=== PATIENT | female | born 1950 | race Caucasian/White ===

== ENCOUNTER 2017-05-23 15:48 | Emergency (ER) | payer MEDICARE, SELFPAY ==
[2017-05-23 16:47] VITALS: BP 160/97; PULSE 114; RESP 20; TEMP 37.2; O2SAT 96; BMI 24.0
--- NOTE | 2017-05-23 16:50 | XR_ITS ---
XR chest 2V HISTORY: ITS.REASON: CHEST CONGESTION ORDERING PHYSICIAN: Irene Scott PATIENT AGE: 67 years COMPARISON: None available FINDINGS: The cardiomediastinal silhouette and pulmonary vascularity are within normal limits. The lungs are clear without infiltrates, suspicious nodules, or pleural effusions. Calcified nodes are present in the left hilum No acute bony abnormalities. IMPRESSION: Negative chest, no acute finding
--- NOTE | 2017-05-23 17:12 | HMH.EDUTC ---
[facility] [place] Disposition Clinical Impression: Upper respiratory infection Qualifiers: URI type: unspecified URI Qualified Code(s): J06.9 - Acute upper respiratory infection, unspecified Disposition: Home, Self-Care Condition on Discharge: Good Instructions: Cough, DI for Headache, Sore Throat Additional Instructions: * Monitor Temp. Tylenol and/or Ibuprofen as needed. ER if fever is no less than 101 despite alternating Tylenol and Ibuprofen * Encourage fluids, water, Gatorade, powerade, pedialyte if /toddler/or child * Warm salt water gargles for throat irritation *Warm fluids *Sore throat lozenges *Sleep elevated *humidifier or vaporizer Lots of rest Increase fluids, water, Gatorade, powerade Over the counter Motrin or Tylenol as needed for pain or fever Return if needed Follow up with family doctor Prescriptions: Albuterol Sulfate [Proair Hfa 90mcg/puff Inh] 2 puffs IH Q4HP PRN #1 inh PRN Reason: Shortness Of Breath Or Wheezing Azithromycin [Z-Gibson 250mg Tab] 250 mg PO UD DOSE PK #6 tab Dextromethorphan Polistirex [Delsym] 10 ml PO Q12 #200 verena.er.12h predniSONE [Prednisone 20mg Tab] 20 mg PO BID #10 tab Time of Disposition: 17:25 Medical Decision Making - Medical Records Medical records reviewed: Yes: I reviewed the patient's medical records. Vital Signs: 05/23/17 16:47 Temperature 98.9 F Temperature Source Temporal Artery Scan Pulse Rate [Brachial] 114 H Respiratory Rate 20 Blood Pressure [Left Arm] 160/97 Blood Pressure Mean [Left Arm] 118 Blood Pressure Source [Left Arm] Automatic Cuff Blood Pressure Position [Left Arm] Sitting 02 Sat by Pulse Oximetry 96 Oxygen Delivery Method Room Air Orders (Tests/Meds): ORDERS Category Date Time Status Chest XR 2 view (NOT portable) [XR chest 2V] Stat Exams 05/23/17 16:50 Taken - Marlon Inquiry Pt receiving controlled substance: No Marlon was queried for this patient: No [facility] [place] HPI - General Stated complaint: congestion Mode of Arrival: Ambulatory Source of Information: Patient Limitations: No Limitations Description of Symptoms (Recalled from Triage Doc. by RN): COUGH AND CHEST CONGESTION SINCE SATURDAY HEENT Symptoms (Recalled from RN notes): No Resp Symptoms (Recalled from RN notes): Yes Skin Symptoms (Recalled from RN notes): No MS Symptoms (Recalled from RN notes): No Functional Status (Recalled from RN notes): NA - History of Present Illness Provider Complaint: Patient state that she has had cough and chest congestion since Saturday State that she is coughing up yellowish colored phlem States that her cough has continued to get worse and she is not resting well State that now her throat feels irritated and sore - Related Data Home Medications Medication Instructions Recorded Confirmed Metoprolol Succinate [Toprol XL 50 mg PO DAILY 05/23/17 05/23/17 50mg Tablet] Primidone [Mysoline 250mg tablet] 250 mg PO TID 05/23/17 05/23/17 Previous Rx's Medication Instructions Recorded Albuterol Sulfate [Proair Hfa 2 puffs IH Q4HP PRN #1 inh 05/23/17 90mcg/puff Inh] Azithromycin [Z-Gibson 250mg Tab] 250 mg PO UD DOSE PK #6 tab 05/23/17 Dextromethorphan Polistirex 10 ml PO Q12 #200 verena.er.12h 05/23/17 [Delsym] predniSONE [Prednisone 20mg 20 mg PO BID #10 tab 05/23/17 Tab] Allergies Allergy/AdvReac Type Severity Reaction Status Date / Time No Known Allergies Allergy Verified 05/23/17 16:50 - Worker's Comp Is this a Worker's Comp case?: No H History I have reviewed the patient's past medical history: Yes Medical History: Denies:: Cancer, Diabetes Mellitus Type 1, Diabetes Mellitus Type 2, MRSA Amputation: No - *Social History Alcohol Intake: never - Psychiatric History Expresses thoughts of harming self/others: None Suicide Plan Description: No Plan ROS Obtained: Yes All systems reviewed & no additional complaints - Constitutional Constitutional: Reports chills, Reports fever(s) - ENT
--- NOTE | 2017-05-23 17:19 | ED_ITS ---
[facility] [place] Clinical Impression: Upper respiratory infection Qualifiers: URI type: unspecified URI Qualified Code(s): J06.9 - Acute upper respiratory infection, unspecified Disposition: Home, Self-Care Condition on Discharge: Good Instructions: Cough, DI for Headache, Sore Throat Additional Instructions: * Monitor Temp. Tylenol and/or Ibuprofen as needed. ER if fever is no less than 101 despite alternating Tylenol and Ibuprofen * Encourage fluids, water, Gatorade, powerade, pedialyte if /toddler/or child * Warm salt water gargles for throat irritation *Warm fluids *Sore throat lozenges *Sleep elevated *humidifier or vaporizer Lots of rest Increase fluids, water, Gatorade, powerade Over the counter Motrin or Tylenol as needed for pain or fever Return if needed Follow up with family doctor Prescriptions: Albuterol Sulfate [Proair Hfa 90mcg/puff Inh] 2 puffs IH Q4HP PRN #1 inh PRN Reason: Shortness Of Breath Or Wheezing Azithromycin [Z-Gibson 250mg Tab] 250 mg PO UD DOSE PK #6 tab Dextromethorphan Polistirex [Delsym] 10 ml PO Q12 #200 verena.er.12h predniSONE [Prednisone 20mg Tab] 20 mg PO BID #10 tab Time of Disposition: 17:25 Medical Decision Making - Medical Records Medical records reviewed: Yes: I reviewed the patient's medical records. Vital Signs: 05/23/17 16:47 Temperature 98.9 F Temperature Source Temporal Artery Scan Pulse Rate [Brachial] 114 H Respiratory Rate 20 Blood Pressure [Left Arm] 160/97 Blood Pressure Mean [Left Arm] 118 Blood Pressure Source [Left Arm] Automatic Cuff Blood Pressure Position [Left Arm] Sitting 02 Sat by Pulse Oximetry 96 Oxygen Delivery Method Room Air Orders (Tests/Meds): ORDERS Category Date Time Status Chest XR 2 view (NOT portable) [XR chest 2V] Stat Exams 05/23/17 16:50 Taken - Marlon Inquiry Pt receiving controlled substance: No Marlon was queried for this patient: No [facility] [place] - General Stated complaint: congestion Mode of Arrival: Ambulatory Source of Information: Patient Limitations: No Limitations Description of Symptoms (Recalled from Triage Doc. by RN): COUGH AND CHEST CONGESTION SINCE SATURDAY HEENT Symptoms (Recalled from RN notes): No Resp Symptoms (Recalled from RN notes): Yes Skin Symptoms (Recalled from RN notes): No MS Symptoms (Recalled from RN notes): No Functional Status (Recalled from RN notes): NA - History of Present Illness Provider Complaint: Patient state that she has had cough and chest congestion since Saturday State that she is coughing up yellowish colored phlem States that her cough has continued to get worse and she is not resting well State that now her throat feels irritated and sore - Related Data Home Medications Medication Instructions Recorded Confirmed Metoprolol Succinate [Toprol XL 50 mg PO DAILY 05/23/17 05/23/17 50mg Tablet] Primidone [Mysoline 250mg tablet] 250 mg PO TID 05/23/17 05/23/17 Previous Rx's Medication Instructions Recorded Albuterol Sulfate [Proair Hfa 2 puffs IH Q4HP PRN #1 inh 05/23/17 90mcg/puff Inh] Azithromycin [Z-Gibson 250mg Tab] 250 mg PO UD DOSE PK #6 tab 05/23/17 Dextromethorphan Polistirex 10 ml PO Q12 #200 verena.er.12h 05/23/17 [Delsym] predniSONE [Prednisone 20mg 20 mg PO BID #10 tab 05/23/17 Tab] All
== END 2017-05-23 17:51 | disposition home or self-care (01) ==
PROVIDERS: Emergency Provider Nurse Practitioner; Family Provider Internal Medicine
DX: J06.9 Acute upper respiratory infection, unspecified (principal)
CPT/HCPCS: 71046; 96372; 99202; 99282

== ENCOUNTER → 2017-12-04 14:19 | Outpatient (CLI) | payer MEDICARE, SELFPAY ==
--- NOTE | 2017-12-04 14:29 | XR_ITS ---
XR wrist RT min 3V Ordering Physician: Casey Jorge Patient Age: 67 years: Female HISTORY: ITS.REASON: RT WRIST PAIN,S/P FALL 1 MONTH AGO TECHNIQUE: 3 views right wrist COMPARISON :None FINDINGS . Arthritic changes are seen at the first carpal metacarpal joint. Narrowing sclerosis and mild hypertrophic changes at medial aspect of the joint noted. Trace arthritic changes are also suggested at articulation of the trapezium and distal navicular. There appear to be some subchondral cystic changes at the distal margin navicular towards this articulation. On the oblique view of the navicular there is question barely appreciable, subtle line through transverse the waist of the navicular this may be due to contour and overlying projections is not seen on the other projections, not seen on the AP and lateral views. There is no cortical step-off either However with given symptoms if there should be pain at the anatomical snuffbox then I would recommend follow-up navicular views. If significant pain at the snuffbox and a follow-up MR may need to be considered. On today's study the proximal pole of the navicular appears normal. But there are some subchondral cystic changes at the ulnar margin of the triquetrum Distal radius and ulna appear intact... Diffuse demineralization IMPRESSION------- 1. Developing arthritic changes first carpal-metacarpal joint . Suspect minor scant arthritic changes at trapezium-distal navicular correlation is well 2. On the oblique view only, there is a very subtle questionable line transversing the waist of the navicular. Not seen on other views. No cortical step-off. If there should be pain at the anatomical snuffbox then I would recommend follow-up navicular views to further evaluate
== END ==
PROVIDERS: PCP Internal Medicine; Visit Provider Internal Medicine
DX: M25.531 Pain in right wrist (principal)
CPT/HCPCS: 73110

== ENCOUNTER → 2017-12-09 15:24 | Outpatient (CLI) | payer MEDICARE, SELFPAY ==
--- NOTE | 2017-12-09 15:38 | XR_ITS ---
XR wrist RT w scaphoid HISTORY ITS.REASON: FX NAVICULAR BONE ORDERING PHYSICIAN: Casey Jorge PATIENT AGE: 67 years Comparison: 12/04/2017 FINDINGS: Views of the right wrist including scaphoid views were obtained. There remains a subtle transverse lucency at the waist of the navicular on the oblique view of the wrist. This however is not demonstrated on the scaphoid view. There is however a faint cortical lucency involving the waist of the scaphoid laterally. There are mild osteoarthritic changes at the scaphotrapezium joint and the first metacarpal carpal joint. IMPRESSION: 1. There remains a faint lucency at the waist of the navicular on the oblique view. This however is not demonstrated on the scaphoid view and AP view and may be due to an artifact. If pain persists, consider CT for further evaluation. 2. Osteoarthritic change
== END ==
PROVIDERS: PCP Internal Medicine; Visit Provider Internal Medicine
DX: S62.001A Unspecified fracture of navicular [scaphoid] bone of right wrist, initial encounter for closed fracture (principal)
CPT/HCPCS: 73110

== ENCOUNTER → 2018-01-23 10:06 | Outpatient (CLI) | payer MEDICARE, SELFPAY ==
[2018-01-23 10:44] LABS: Blood Urea Nitrogen 11 mg/dL (7-18); Creatinine,Serum 0.92 mg/dL (0.55-1.02); Estimated Glomerular Filt Rate 61 ml/min (>60); GFR (African American) 74 ML/MIN (>60)
--- NOTE | 2018-01-23 12:27 | CT_ITS ---
CT chest w con HISTORY: ITS.REASON: MELANOMA ORDERING PHYSICIAN: Referral Provider PATIENT AGE: 67 years COMPARISON: None TECHNIQUE: Axial images obtained following the administration of 75 mL of Isovue 370 . Sagittal, and coronal reformatted images are also generated and reviewed. All CT scans at the facility use one or more dose reduction, viz: automated exposure control, ma/kV adjustment per patient size (including targeted exams where dose is matched to indication, i.e. head), or iterative reconstruction technique. FINDINGS: No mediastinal or hilar mass or adenopathy. Normal heart size. No evidence of pericardial effusion, aortic aneurysm, or central pulmonary embolus. No suspicious pulmonary nodules effusions or infiltrates. Calcified nodes are present in the left hilum. There is kinking of the proximal aspect of the right subclavian artery with tortuosity with what appears to represent a moderate stenosis and poststenotic dilatation 1.2 cm distal to the origin of the right subclavian artery. The stenosis appears greater than 50%. No bony destructive process. IMPRESSION: 1. No evidence of pulmonary metastasis. 2. Old granulomatous disease. 3. Moderate stenosis of the proximal aspect of the right subclavian artery
--- NOTE | 2018-01-23 12:27 | CT_ITS ---
CT abdomen pelvis w con CLINICAL INDICATION: ITS.REASON: MELANOMA ORDERING PHYSICIAN: Referral Provider, PATIENT AGE: 67 years COMPARISON: None TECHNIQUE: Axial images obtained with sagittal and coronal reformats. All CT scans at the facility use one or more dose reduction, viz: automated exposure control, ma/kV adjustment per patient size (including targeted exams where dose is matched to indication, i.e. head), or iterative reconstruction technique. PROCEDURE: Oral Contrast: None IV Contrast: 75 mL's of Isovue-370 performed in conjunction with the chest CT. FINDINGS: There is a 6 mm isodensity in the right hepatic lobe posteriorly. This is nonspecific. No previous exams are available for review. Patchy decreased attenuation is present within the liver consistent with fatty liver. Prior cholecystectomy. The spleen, adrenal glands, and pancreas are unremarkable. No renal or ureteral calculi, hydronephrosis, or renal mass evident. There are few scattered small lymph nodes in the mesentery's. No adenopathy. Unremarkable appendix. There is a small umbilical hernia containing fat. No pelvic mass or abnormal fluid collection or focal inflammatory changes pelvis. There is sclerosis of the right symphysis pubis compared to the left side of questionable clinical significance. Sclerosis of the right SI joint also noted. No lytic bony lesions evident. There are mild degenerative changes in the lumbar spine. IMPRESSION: 1. Fatty liver with indeterminate 6 mm isodensity in the right hepatic lobe. 6 month follow-up suggested to confirm stability in this patient with history of melanoma. 2. Sclerosis of the symphysis pubis on the right and sclerosis of the right SI joint.. These findings were present on 02/27/2016 and may be degenerative in nature. No bony destructive process evident
== END ==
PROVIDERS: Family Provider Internal Medicine; PCP Internal Medicine; Visit Provider Ophthalmology
DX: Z03.89 Encounter for observation for other suspected diseases and conditions ruled out (principal); C69.30 Malignant neoplasm of unspecified choroid
CPT/HCPCS: 36415; 71260; 74177; 82565; 84520; Q9967

== ENCOUNTER → 2018-10-10 13:21 | Outpatient (CLI) | payer MEDICARE, SELFPAY ==
--- NOTE | 2018-10-10 13:37 | CT_ITS ---
CT abdomen w con CLINICAL INDICATION: ITS.REASON: MELANOMA METASTASIS ORDERING PHYSICIAN: Micheline Nevarez MD PATIENT AGE: 68 years COMPARISON: None TECHNIQUE: Axial images obtained with sagittal and coronal reformats. All CT scans at the facility use one or more dose reduction, viz: automated exposure control, ma/kV adjustment per patient size (including targeted exams where dose is matched to indication, i.e. head), or iterative reconstruction technique. PROCEDURE: Oral Contrast: None IV Contrast: 75 mL's Optiray 350 performed in conjunction with the chest CT. FINDINGS: Heterogeneous areas of decreased attenuation are present within the liver consistent with fatty infiltration. There is an 8 mm hypoattenuating area in the right hepatic lobe posteriorly. This does appear slightly more prominent than when compared to the previous exam. No new lesions are evident. Cholecystectomy change. The spleen, adrenal glands, and pancreas have an unremarkable appearance. No renal or ureteral calculi. No renal mass. Small lymph node is present posterior to the portal vein unchanged. No abdominal mass or abnormal fluid collection evident. The pelvis is not imaged on this exam. There is a small umbilical hernia which contains fat. No retroperitoneal adenopathy. There are mild degenerative changes in the spine. IMPRESSION: 1. There is an 8 mm isodense lesion in the right hepatic lobe posteriorly. This does appear slightly more prominent compared to the previous study. Metastatic lesion is not excluded. There are no new lesions evident. No other changes are apparent. Continued follow-up recommended
--- NOTE | 2018-10-10 13:37 | CT_ITS ---
CT chest w con HISTORY: ITS.REASON: MELANOMA METASTASIS ORDERING PHYSICIAN: Micheline Nevarez MD PATIENT AGE: 68 years COMPARISON: 01/23/2018 [birth year]/1980 TECHNIQUE: Axial images obtained following the administration of 75 mL of Optiray 350 . Sagittal, and coronal reformatted images are also generated and reviewed. All CT scans at the facility use one or more dose reduction, viz: automated exposure control, ma/kV adjustment per patient size (including targeted exams where dose is matched to indication, i.e. head), or iterative reconstruction technique. FINDINGS: No mediastinal or hilar mass or adenopathy. Normal heart size. No evidence of aortic aneurysm or central pulmonary embolus. Prominent spurring is present along the lower thoracic spine on the right colon and some atelectatic changes. No suspicious pulmonary nodules are evident. There are mild atelectatic changes in the left lung base. Calcified nodes present in the left hilum.. No acute bony anomalies. Previously there was suspected stenosis of the subclavian artery on the right. This area is obscured by artifact on today's images. IMPRESSION: Stable CT appearance of the chest. No convincing evidence of metastatic disease Slight increase in atelectasis or fibrosis in the right lower lobe medially adjacent prominent spurs of the T-spine
== END ==
PROVIDERS: PCP Internal Medicine; Visit Provider Ophthalmology
DX: C69.31 Malignant neoplasm of right choroid (principal)
CPT/HCPCS: 71260; 74160

== ENCOUNTER → 2020-01-22 14:37 | Outpatient (CLI) | payer MEDICARE, SELFPAY ==
--- NOTE | 2020-01-22 14:46 | XR_ITS ---
PROCEDURE: XR FINGER RT MIN 2V CLINICAL INDICATION: RT THUMB PAIN COMPARISON: No exams were available for comparison FINDINGS: No fracture or dislocation. No lytic or blastic change. There is normal mineralization. There are mild osteoarthritic changes at the 1st metacarpal-carpal joint, 1st interphalangeal joint, and 1st metacarpophalangeal joint. No fracture or dislocation. Osteoarthritis also noted at the 2nd metacarpophalangeal junction with a small periarticular erosion possibly due to small geode Other findings:None. IMPRESSION: Mild osteoarthritis of the right thumb Dictated by: Raf Segura MD 01/22/2020 17:40 Raf Segura MD in [place] 01/22/2020 17:40
== END ==
PROVIDERS: PCP Internal Medicine; Visit Provider Internal Medicine
DX: M79.644 Pain in right finger(s) (principal)
CPT/HCPCS: 73140

== ENCOUNTER → 2021-02-22 13:55 | Outpatient (CLI) | payer MEDICARE, SELFPAY ==
[2021-02-22 14:36] LABS: Basophils # 0.1 K/mm3 (0-0.2); Basophils % 1.9 % (0.1-2.0); Eosinophils # 0.2 K/mm3 (0.0-0.4); Eosinophils % 3.8 % (0.1-12.0); Hematocrit 43.3 % (37.0-47.0); Hemoglobin 14.2 g/dL (12.2-16.2); Lymphocytes # 1.5 K/mm3 (0.7-4.5); Lymphocytes % 29.8 % (10-50); Mean Corpuscular HGB Conc 32.8 g/dL (31.8-35.4); Mean Corpuscular Hemoglobin 29.6 pg (27.0-31.2); Mean Corpuscular Volume 90.4 fl (81-99); Mean Platelet Volume 8.9 fl (7.4-10.4); Monocytes # 0.3 K/mm3 (0.1-1.0); Monocytes % 6.9 % (1.7-9.3); Neutrophils # 2.8 K/mm3 (1.8-7.8); Neutrophils % 57.5 % (37.0-80.0); Platelet Count 219 K/mm3 (142-424); Red Blood Count 4.79 M/mm3 (4.20-5.40); Red Cell Distribution Width 13.8 % (11.5-17.5); White Blood Count 4.9 K/mm3 (4.8-10.8)
[2021-02-22 15:18] LABS: Alanine Aminotransferase 41 U/L (12-78); Albumin Level 4.2 g/dl (3.5-5.0); Albumin/Globulin Ratio 1.4 (1.1-1.8); Alkaline Phosphatase 103 U/L (38-126); Anion Gap 13.3 mEq/L (5-15); Aspartate Amino Transferase 36 U/L (14-36); Bilirubin,Total 0.3 mg/dl (0.2-1.3); Blood Urea Nitrogen 12 mg/dl (7-17); Calcium 9.2 mg/dl (8.4-10.2); Carbon Dioxide 27 mmol/L (22.0-30.0); Chloride 104 mmol/L (98-107); Estimated Glomerular Filt Rate 99 ml/min (>60); GFR (African American) 119 ML/MIN (>60); Globulin 3.1 g/dL (1.3-3.2); Glucose 85 mg/dl (74-100); Potassium 4.3 mmoL/L (3.5-5.1); Sodium 140 mmol/L (136-145); Total Protein,Serum 7.3 g/dl (6.3-8.2)
[2021-02-22 15:49] LABS: Thyroid Stimulating Hormone 6.02 uIU/mL (0.465-4.68)
== END ==
PROVIDERS: Visit Provider Internal Medicine
DX: I10 Essential (primary) hypertension (principal); E03.9 Hypothyroidism, unspecified; G40.909 Epilepsy, unspecified, not intractable, without status epilepticus; Z85.840 Personal history of malignant neoplasm of eye
CPT/HCPCS: 80053; 84436; 84443; 85025

== ENCOUNTER → 2021-03-17 15:10 | Outpatient (CLI) | payer MEDICARE, SELFPAY ==
[2021-03-17 18:15] LABS: Anion Gap 13.6 mEq/L (5-15); Blood Urea Nitrogen 11 mg/dl (7-17); Calcium 9.3 mg/dl (8.4-10.2); Carbon Dioxide 27 mmol/L (22.0-30.0); Chloride 104 mmol/L (98-107); Estimated Glomerular Filt Rate 99 ml/min (>60); GFR (African American) 119 ML/MIN (>60); Glucose 80 mg/dl (74-100); Potassium 4.6 mmoL/L (3.5-5.1); Sodium 140 mmol/L (136-145)
== END ==
PROVIDERS: Visit Provider Internal Medicine
DX: R60.9 Edema, unspecified (principal)
CPT/HCPCS: 80048

== ENCOUNTER → 2022-07-25 11:37 | Outpatient (CLI) | payer MEDICARE, SELFPAY ==
--- NOTE | 2022-07-25 11:42 | CT_ITS ---
FINAL REPORT TECHNIQUE: Axial images through the abdomen and pelvis were performed without contrast. This study was performed with techniques to keep radiation doses as low as reasonably achievable, (ALARA). Individualized dose reduction techniques using automated exposure control or adjustment of mA and/or kV according to the patient's size were employed. CLINICAL HISTORY: Incarcerated hernia COMPARISON: 01/23/2018 FINDINGS: ABDOMEN: There is mild scarring in the right lung base. The heart size is normal. There is fatty infiltration of the liver. The patient is status post cholecystectomy. The spleen is normal. No adrenal mass is identified. The aorta is normal in caliber. There is no significant free fluid or adenopathy. There is no nephrolithiasis. There is no hydronephrosis. There is a small supraumbilical hernia containing fat only. Finding is new since the prior. There is an umbilical hernia containing fat, larger than previous. Hernia sac measures 42 mm in transverse dimension. PELVIS: The appendix is normal. The urinary bladder is unremarkable. There is no significant free fluid or adenopathy. There is sclerosis adjacent to the right SI joint. IMPRESSION: New, supraumbilical hernia. Umbilical hernia containing fat, larger than previous. Reviewed, Interpreted and Dictated by William West III, MD Transcribed by Jasmina Hinton Authenticated and [facility]
--- NOTE | 2022-07-25 12:38 | ECG_ITS ---
APPROVED REPORT Exam: Resting ECG HR:73 bpm ECG Measurements Heart Rate 73 AXES DE 157 P 49 QRSd 92 QRS 81 QT 373 T 42 QTc 399 Conclusion SINUS RHYTHM LOW QRS VOLTAGE IN PRECORDIAL LEADS Isolated Q in III Late R wave progression - old finding BORDERLINE ECG UNCONFIRMED REPORT Electronically signed by : Eliezer Carvajal MD 07/25/2022 20:25:11
[2022-07-25 12:59] LABS: Basophils # 0.1 K/mm3 (0-0.2); Basophils % 2.4 % (0.1-2.0); Eosinophils # 0.2 K/mm3 (0.0-0.4); Eosinophils % 3.8 % (0.1-12.0); Hemoglobin 14.9 g/dL (12.2-16.2); Lymphocytes # 1.6 K/mm3 (0.7-4.5); Lymphocytes % 27.8 % (10-50); Mean Corpuscular HGB Conc 31.7 g/dL (31.8-35.4); Mean Corpuscular Hemoglobin 28.7 pg (27.0-31.2); Mean Corpuscular Volume 90.5 fl (81-99); Mean Platelet Volume 8.3 fl (7.4-10.4); Monocytes # 0.4 K/mm3 (0.1-1.0); Monocytes % 6.9 % (1.7-9.3); Neutrophils # 3.3 K/mm3 (1.8-7.8); Neutrophils % 59.1 % (37.0-80.0); Platelet Count 231 K/mm3 (142-424); Red Cell Distribution Width 13.7 % (11.5-17.5); White Blood Count 5.6 K/mm3 (4.8-10.8)
[2022-07-25 13:27] LABS: Anion Gap 12.5 mEq/L (5-15); Blood Urea Nitrogen 14 mg/dl (7-17); Calcium 9.4 mg/dl (8.4-10.2); Carbon Dioxide 29 mmol/L (22.0-30.0); Chloride 103 mmol/L (98-107); Estimated Glomerular Filt Rate 82 ml/min (>60); GFR (African American) 100 ML/MIN (>60); Glucose 88 mg/dl (74-100); Potassium 4.5 mmoL/L (3.5-5.1); Sodium 140 mmol/L (136-145)
== END ==
PROVIDERS: PCP Internal Medicine; Visit Provider Surgery
DX: K46.0 Unspecified abdominal hernia with obstruction, without gangrene (principal); K42.0 Umbilical hernia with obstruction, without gangrene; Z01.818 Encounter for other preprocedural examination
CPT/HCPCS: 36415; 74176; 80048; 85025; 93005

== ENCOUNTER 2022-07-26 15:56 | Observation (INO) | payer MEDICARE, SELFPAY ==
[2022-07-26] VITALS (24 sets, daily range): BP systolic 102–157; BP diastolic 51–98; PULSE 68–92; RESP 16–19; TEMP 36.4–43; O2SAT 90–98; BMI 42.4
--- NOTE | 2022-07-26 13:27 | EXP.ANES.CKL ---
[facility] Disclaimer: The information contained in this section may have been updated after the patient was seen, as this information can be updated by other users. Medical History (Updated 07/26/22 @ 10:40 by Daniella Kaur RN) Hypertension Hypothyroid Seizure disorder Surgical History History of eye surgery History of laparoscopic cholecystectomy Family History (Updated 07/26/22 @ 10:37 by Daniella Kaur RN) Other Family history of diabetes mellitus type II Family history of hypothyroidism Social History (Updated 07/26/22 @ 10:41 by Daniella Kaur RN) Smoking Status: Never smoker alcohol intake: current substance use type: denies use current occupational status: retired Travel in the last 8 weeks: None household members: none housing: house lives independently: Yes marital status: education level: college special shayy needs: No agree to transfusion: No do you feel safe at home: Yes victim of physical abuse: No victim of emotional abuse: No victim of sexual abuse: No would you like helpful sources: No [facility] Anesthesia Checklist Patient Identification Patient Identification: Arm Band Structural Data Admitted From: Home Planned Operative Procedure/s: Open Umbilical Hernia Repair Consent for Planned Operative Procedure(s) Verified: Yes Verified Documents: Surgical Consent and History and Physical NPO Status Verified Time NPO: 00:00 Additional verifications Anesthesia Reactions: No Hx Blood Transfusions: No Blood Transfusion Reaction: No Airway Assessment C-Spine Mobility Assessed: Yes TMJ Mobility Assessed: Yes Dentition: Good Dentition Neurological Assessment Level of Consciousness: Awake and Alert Anesthesia Plan Anesthesia Risk discussed: Yes Anesthesia Plan: Verified ASA Class: III Anesthesia Type: General
--- NOTE | 2022-07-26 14:05 | EXP.OP.NOTE ---
Date of procedure: 07/26/22 Pre-op Diagnosis:: Incarcerated umbilical hernia Supraumbilical hernia Post-op Diagnosis:: Incarcerated umbilical hernia (incarcerated omentum) Supraumbilical hernia Procedure performed:: Open primary umbilical hernia and supraumbilical hernia repair (no mesh) Surgeon:: Ignacio Mitchell MD ORDER PACKER OR PACKAGER:: Thaddeus Sarah Anesthesia: GETA Estimated blood loss (mL): 15 Clinical Note:: The use of mesh contraindicated by recent overlying skin excoriation/inflammation. The patient understood the increased risk for recurrent hernia. Operative findings:: Incarcerated omentum Small bowel at margin of hernia Operative note:: After informed consent was obtained the patient was taken to the operating room and placed in the supine position. General anesthesia was induced and her abdomen was prepped and draped in a sterile fashion. After infiltration local anesthetic a longitudinal incision was made above the umbilicus. The deep subcutaneous tissue was dissected to the level of fascia. A small fascial defect above the umbilicus was closed with 0 Ethibond. Attention was then turned to the incarcerated umbilical hernia. The tissue around the incarcerated omentum was carefully dissected with a combination of blunt dissection and electrocautery. The overlying umbilical stalk was transected to facilitate dissection. The incarcerated omentum with surrounding hernia sac was carefully elevated. The hernia sac was transected at the margin of the fascia. The incarcerated omentum was carefully elevated. The omentum cannot be returned to the abdominal cavity; therefore, the decision was made to proceed with transection. Transection of the omentum with electrocautery was completed. No active bleeding was noted. Multiple loops of small bowel were in extremely close proximity to the hernia repair; however, no obvious injury was noted. The 2 cm defect at the umbilicus was primarily closed with interrupted 0 Ethibond. As stated above, foreign body material/mesh was not utilized secondary to recent skin excoriation/inflammation. The wound was carefully irrigated. The umbilical stump was reapproximated with interrupted Vicryl suture. Skin was then closed with 4-0 Monocryl in an interrupted mattress fashion to facilitate hemostasis. Dressings were applied and the patient was transferred to recovery in stable condition. Condition: stable Disposition: PACU Specimens:: None Complications:: No immediate
--- NOTE | 2022-07-26 14:17 | P.PNANES_ITS ---
[facility] Anesthesia Record Part I Anesthesia Record I Intake, IV Amount: 1,100 Estimated blood loss (mL): 10 Urine output (mL): 0 Blood Pressure: 149/97 SaO2: 91 Pulse Rate: 89 Respiratory Rate: 16 Temperature: 99 F Patient is:: Drowsy Stable to PACU at:: 14:15
--- NOTE | 2022-07-26 15:48 | EXP.GEN.HP ---
HPI HPI HPI: This is a 72-year-old female seen in consultation from Dr. Jorge for evaluation regarding an incarcerated umbilical hernia.? She has a long history of umbilical hernia with intermittent pain.? She states over the past 3 days she has noticed fairly significant periumbilical pain/tenderness.? Reportedly, her hernia always sticks out .? Seemingly, she does not make efforts to reduce her hernia secondary to associated pain/tenderness.? No nausea or vomiting.? She continues to pass flatus.? No distention. CT scan shows incarcerated umbilical defect (likely preperitoneal fat) without evidence of small bowel incarceration.? A small supraumbilical hernia is also noted.? She is being scheduled for open repair tomorrow.? Secondary to the inflammatory changes noted in the surrounding/overlying skin, placement of mesh is somewhat contraindicated.? The patient understands the increased risk of recurrence without mesh placement. [facility] Disclaimer: The information contained in this section may have been updated after the patient was seen, as this information can be updated by other users. Medical History (Updated 07/26/22 @ 10:40 by Daniella Kaur RN) Hypertension Hypothyroid Seizure disorder Surgical History History of eye surgery History of laparoscopic cholecystectomy Family History (Updated 07/26/22 @ 10:37 by Daniella Kaur RN) Family history of hypothyroidism Family history of diabetes mellitus type II Social History (Updated 07/26/22 @ 10:41 by Daniella Kaur RN) Smoking Status: Never smoker alcohol intake: current substance use type: denies use current occupational status: retired Travel in the last 8 weeks: None household members: none housing: house lives independently: Yes marital status: education level: college special shayy needs: No agree to transfusion: No do you feel safe at home: Yes victim of physical abuse: No victim of emotional abuse: No victim of sexual abuse: No would you like helpful sources: No Review of Systems Review of Systems Review of systems:: pertinent systems reviewed and negative unless documented below Constitutional Constitutional: Reports system reviewed and no additional complaints, except as documented Eyes Eyes: Reports system reviewed and no additional complaints, except as documented ENT Ears, Nose, Mouth, and Throat: Reports system reviewed and no additional complaints, except as documented *Cardiovascular Cardiovascular: Reports system reviewed and no additional complaints, except as documented *Respiratory Respiratory: Reports system reviewed and no additional complaints, except as documented *Gastrointestinal Gastrointestinal: Reports as per HPI *Genitourinary Genitourinary: Reports system reviewed and no additional complaints, except as documented *Musculoskeletal Musculoskeletal: Reports system reviewed and no additional complaints, except as documented Integumentary/Breasts Skin/Breast: Reports system reviewed and no additional complaints, except as documented *Neurologic Neurologic: Reports system reviewed and no additional complaints, except as documented Psychiatric Psychiatric: Reports system reviewed and no additional complaints, except as documented Endocrine Endocrine: Reports system reviewed and no additional complaints, except as documented Hematologic/Lymphatic Hematologic/Lymphatic: Reports system reviewed and no additional complaints, except as documented Allergic/Immunologic Allergic/Immunologic: Reports system reviewed and no additional complaints, except as documented Meds Home Medications and Allergies Home Medications Medication Instructions Recorded Confirmed Type metoprolol succinate 50 mg 50 mg PO DAILY Hypertension 05/23/17 07/26/22 History tablet,extended release 24 hr (Toprol XL) primidone 250 mg tablet 250 mg PO TID EPILEPSY 05/23/17
--- NOTE | 2022-07-26 15:50 | SUR.PHASEII ---
1500 - Spoke to patient's preacher at bedside. Pt and preacher both confirm this pt does not have any available family/friends to care for her tonight. Pt had been arranged transportation by the [facility] [place] here and was under the impression she would be able to ride it back home by herself. Informed pt that she had to have someone sign for her discharge and ride with her home, she states she does not have someone available for this as well. Pt's preacher confirms he did stay here during surgery but would not be able to stay w/ pt either and was not comfortable signing DC paperwork d/t this. Pt's preacher had reached out to multiple people to see if there was anyone able to stay w/ patient but has been unsuccessful so far. 1530 - Spoke to Dr. Mitchell @ this time about situation, made aware that pt does not have support person at home. agreeable to admit for obs over night. 1540 - House contacted about admission 1555 - Per house pt will be going to room 205. Pt updated on POC.
[2022-07-26 16:12] LABS: Coronavirus 19, PCR Not Detected (NotDetected); Influenza A, PCR Not Detected (NotDetected); Influenza B, PCR Not Detected (NotDetected)
--- NOTE | 2022-07-26 16:13 | SUR.PHASEII ---
Detailed report called to FAITH Suazo @ this time.
--- NOTE | 2022-07-26 16:18 | PC.NURSE ---
Pt arrived to the floor at this time
--- NOTE | 2022-07-26 20:35 | PC.NURSE ---
pt rounded on and assisted to the bathroom, and trash was taken out. pt requested some pain medication from the nurse, I let the nurse know. The pt has no further requests at this time.
[2022-07-27] VITALS: BP 103/56; PULSE 73; RESP 18; TEMP 36.9; O2SAT 93
--- NOTE | 2022-07-27 00:28 | PC.NURSE ---
pt is receiving seizure medication, per protocol this nurse asked the tech to place seizure pads on pt. bed railings. the tech notified me that she was upset. upon entering the room and asking pt. how she was feeling she stated I'm very upset with my care at this place right now. when asked what was making her feel this way she was referring to the seizure pads and stated I will not be treated like a child, this really pisses me off. I explained the protocol to her and she insisted that she did not want the pads on her railings saying The next time I come in here I won't tell you the truth. seizure pads were removed per pt. refusal.
[2022-07-27 04:00] VITALS: BP 114/63; PULSE 74; RESP 18; TEMP 36.5; O2SAT 96; BMI 42.1
--- NOTE | 2022-07-27 06:47 | HMH.PHAINT1 ---
Pharmacy Intervention Comments: MEDICATION RECONCILIATION COMPLETED ON PATIENT USING EXTERNAL FILL HISTORY FROM PHARMACY. -[facility], [facility]
--- NOTE | 2022-07-27 07:02 | P.PNANES_ITS ---
[facility] Anesthesia Record Part II Anesthesia Record Part II Discharge Time: 14:54 Destination: Surgical Day Care (OP Surgery) PACU nurse assessment reviewed?: Yes Patient Condition:: Good Anesthesia Complications:: None Swallowing reflex intact?: Yes Cyanosis?: No Blood Pressure: 142/91 Pulse Rate: 73 Temperature: 98.1 F Mental Status: Alert & Oriented Pain level:: 7 Nausea and/or vomitting:: None Intake, IV Amount: 0
[2022-07-27 07:03] VITALS: BP 142/91; PULSE 73; TEMP 36.7
--- NOTE | 2022-07-27 07:29 | EXP.DC.SUM ---
General Admission date:: 07/26/22 HPI HPI HPI: This is a 72-year-old female seen in consultation from Dr. Jorge for evaluation regarding an incarcerated umbilical hernia.? She has a long history of umbilical hernia with intermittent pain.? She states over the past 3 days she has noticed fairly significant periumbilical pain/tenderness.? Reportedly, her hernia always sticks out .? Seemingly, she does not make efforts to reduce her hernia secondary to associated pain/tenderness.? No nausea or vomiting.? She continues to pass flatus.? No distention. CT scan shows incarcerated umbilical defect (likely preperitoneal fat) without evidence of small bowel incarceration.? A small supraumbilical hernia is also noted.? She is being scheduled for open repair tomorrow.? Secondary to the inflammatory changes noted in the surrounding/overlying skin, placement of mesh is somewhat contraindicated.? The patient understands the increased risk of recurrence without mesh placement. Hospital Course Hospital Course Hospital Course: The patient underwent open repair of incarcerated umbilical hernia. Please see operative report for detail. She convalesced well overnight and was deemed appropriate for discharge home on the morning of postoperative day 1. At the time of discharge she was afebrile with stable normal vital signs. She was ambulating and tolerating her diet. Exam Data for Last 24 hours Vital signs and Labs for Last 24 Hours: Temp Pulse Resp BP Pulse Ox 98.1 F 73 18 142/91 H 96 07/27/22 07:03 07/27/22 07:03 07/27/22 04:00 07/27/22 07:03 07/27/22 04:00 Laboratory Results - last 24 hr 07/26/22 16:08: SARS-CoV-2 (PCR) Not detected, Influenza A Untype (PCR) Not detected, Influenza Type B (PCR) Not detected I & O for Last 24 hours: Intake & Output 07/24/22 07/25/22 07/26/22 07/27/22 11:59 11:59 11:59 11:59 Intake Total 1100 / 1100 Output Total 350 / 350 Balance 750 / 750 Weight 247 lb 246 lb 15.742 oz Constitutional Constitutional: no acute distress *Routine HEENT Exam Head: Present normocephalic Eye: Present EOMI ENT: Present mucous membranes moist *Routine Neck Exam Neck: Present full ROM Routine Chest/Breast/Axilla Exam Chest wall: Absent tenderness *Routine Respiratory Exam Respiratory: Absent respiratory distress *Routine Cardiovascular Exam Cardiovascular: Absent tachycardia *Routine Abdominal Exam Abdominal: Present soft *Routine Rectal Exam Patient deferred: visual exam and digital exam *Routine Exam Patient deferred: external exam *Routine Extremities Exam Extremities: Absent cyanosis Routine Back/Spine/Pelvis Exam Back/Spine: Present full ROM *Routine Skin Exam Skin: Absent erythema *Routine Neurological Exam Neurological: Present alert Routine Psychiatric Exam Psychiatric: Present normal affect Results Data Completed and Pending Labs on day of discharge: Labs from last 24 hours 07/26/22 16:08 SARS-CoV-2 (PCR) Not detected Influenza A Untype (PCR) Not detected Influenza Type B (PCR) Not detected DS: Diagnosis Discharge Diagnosis (1) Incarcerated umbilical hernia: Status: Acute Meds Home Medications and Allergies Home Medications Medication Instructions Recorded Confirmed Type metoprolol succinate 50 mg 50 mg PO DAILY Hypertension 05/23/17 07/26/22 History tablet,extended release 24 hr (Toprol XL) primidone 250 mg tablet 250 mg PO TID EPILEPSY 05/23/17 07/26/22 History levothyroxine 75 mcg tablet 75 mcg PO DAILY thyroid 07/25/22 07/26/22 History hydrocodone 5 mg-acetaminophen 325 1 tab PO Q6H PRN post-op pain #17 07/26/22 Rx mg tablet tabs New Prescriptions to Start Prescriptions: hydrocodone-acetaminophen Ignacio Mitchell Allergies Allergy/AdvReac Type Severity Reaction Status Date / Time No Known Allergies Allergy Verified 07/25/22 11:18 Discharge Plan Disposition Patient Disposition: [facility]
[2022-07-27 07:45] VITALS: BP 137/73; PULSE 83; RESP 18; TEMP 37; O2SAT 93
== END 2022-07-27 09:15 | disposition home or self-care (01) ==
LOC: 2ND 15:59
PROVIDERS: Admitting Provider Surgery; PCP Internal Medicine; Visit Provider Surgery
PROC: (CPT 49592; principal; 2022-07-26 11:15)
DX: K42.0 Umbilical hernia with obstruction, without gangrene (principal); E03.9 Hypothyroidism, unspecified; Z79.899 Other long term (current) drug therapy; Z20.822 Contact with and (suspected) exposure to COVID-19
CPT/HCPCS: 49592; G0378; 96374; C9803; J2405; U0003; U0005

== ENCOUNTER 2022-08-03 01:52 | Emergency (ER) | payer MEDICARE, SELFPAY ==
[2022-08-03 02:08] VITALS: BP 136/87; PULSE 105; RESP 14; TEMP 36.5; O2SAT 98; BMI 41.1
--- NOTE | 2022-08-03 02:16 | CT_ITS ---
PROCEDURE INFORMATION: Exam: CT Abdomen And Pelvis With Contrast Exam date and time: 08/03/2022 3:27 AM Age: 72 years old Clinical indication: Pain and screening exam; Post surgical status; Prior surgery; Surgery date: 3-7 days post-operative; Surgery type: Hernia repair x1 week, C/O abdominal pain; Additional info: Abd pain, recent hernia repair TECHNIQUE: Imaging protocol: Computed tomography of the abdomen and pelvis with contrast. Radiation optimization: All CT scans at this facility use at least one of these dose optimization techniques: automated exposure control; mA and/or kV adjustment per patient size (includes targeted exams where dose is matched to clinical indication); or iterative reconstruction. Contrast material: ISOVUE; Contrast volume: 75 ml; Contrast route: IV; Other contrast: Oral, gastrografin, 30; REPORTING DATA: Count of CT and Cardiac NM exams in prior 12 months: This patient has received [address] and 0 known cardiac nuclear medicine studies in the 12 months prior to the current study. COMPARISON: CT ABDOMEN PELVIS WO CON 07/25/2022 11:41 AM FINDINGS: Lungs: Lung bases are clear. Liver: Hepatic steatosis. Punctate calcified granuloma in the dome of the liver. Stable subcentimeter hypodense focus in the dome of the right lobe, too small to accurately characterize but statistically most likely benign; no routine follow-up recommended. Gallbladder and bile ducts: Status post cholecystectomy. No biliary dilatation. Pancreas: Normal. No ductal dilation. Spleen: Multiple tiny calcified splenic granulomata. Adrenal glands: Normal. No mass. Kidneys and ureters: Normal. No hydronephrosis. Stomach and bowel: A few thickened loops of small bowel in the anterior abdomen and pelvis. Mild sigmoid diverticulosis without evidence of diverticulitis. Appendix: No evidence of appendicitis. Intraperitoneal space: Small amount of free fluid, possibly postoperative. No free air. Vasculature: Unremarkable. No abdominal aortic aneurysm. Lymph nodes: Unremarkable. No enlarged lymph nodes. Urinary bladder: Unremarkable as visualized. Reproductive: Unremarkable as visualized. Bones/joints: No acute osseous abnormality. Soft tissues: Postoperative changes from umbilical hernia repair, with no obvious residual or recurrent hernia. A 6 x 6.5 x 8 cm fluid collection in the subcutaneous fat at the umbilicus. Fluid collection does extend up towards the area of the previously noted small supraumbilical ventral hernia, and this may have been repaired as well. IMPRESSION: 1. Postoperative changes from umbilical hernia repair, with no obvious residual or recurrent hernia. 2. A 6 x 6.5 x 8 cm fluid collection in the subcutaneous fat at the umbilicus. Suspect postoperative seroma. 3. Fluid collection does extend up towards the area of the previously noted small supraumbilical ventral hernia, and this may have been repaired as well. Recommend correlation with surgical history. 4. Small amount of free fluid, possibly postoperative. 5. A few thickened loops of small bowel in the anterior abdomen and pelvis. Consider possibility of enteritis. 6. Hepatic steatosis. 7. Status post cholecystectomy. No biliary dilatation.
--- NOTE | 2022-08-03 02:45 | HMH.EDGENADL ---
Discharge Plan Disposition Patient Disposition: Home, Self-Care Condition: Good Chief Complaint: PAIN Prescriptions Prescriptions: No Action levothyroxine 75 mcg tablet 75 mcg PO DAILY primidone 250 MG tablet 250 mg PO TID Label Comments: metoprolol succinate [Toprol XL] 50 MG tablet 50 mg PO DAILY Referrals Follow up/Referrals: Casey Jorge MD [Primary Care Provider] - See instructions Clinical Impressions Clinical Impression: Seroma after procedure Instructions Patient Instructions: DI for Ventral Hernia Print Language Print Language: Kuwaiti Discharge ED Provider: Ronn Rubin General Adult HPI General Chief complaint: PAIN Stated complaint: Umbilical hernia surgery; pain in abdomen Time Seen by Provider: 08/03/22 04:57 Mode of Arrival: Family Vehicle Limitations: No Limitations Description of Symptoms (Recalled from ER Triage Doc. by RN): PT IS A 72 YO FEMALE WHO PRESENTS WITH A CC OF ABD PAIN. REPORTS THAT DR CHAU (GENERAL SURGERY) DID AN UMBILICAL HERNIA REPAIR. SHE WAS PLACED ON A PROBIOTIC AND A NARCOTIC FOR PAIN POST OP. SHE HAS HAD NOTICEABLE FLATULENCE BUT NO BOWEL MOVEMENT SINCE THE PROCEDURE. STATED PAIN IS GRADUALLY WORSENING FOR ENTIRETY OF STOMACH, HOWEVER IS MORE REPRODUCIBLE ON THE LEFT. PT IS ALERT AND ORIENTED TO SELF AND SITUATION. VERBALIZES INFORMATION/APPEARS TO COMPREHEND WITHOUT DIFFICULTY. STATED THE PAIN IS MAKING HER NAUSEATED AND WANTS TO BE EVALUATED. History of Present Illness HPI narrative: Patient presents to the emergency department abdominal pain. She recently had an open incarcerated umbilical hernia repair. The patient states that she went home and for the first few days had an uncomplicated course. She was seen by her surgeon 2 days ago. She comes in today after having very minimal bowel movement since her surgery, decrease in flatulence and worsening pain in her umbilical region. She denies any fever, chills, cough, congestion. She does describe nausea without vomiting. She denies any urinary symptoms. Related Data Home Medications Medication Instructions Recorded Confirmed metoprolol succinate 50 mg 50 mg PO DAILY Hypertension 05/23/17 08/03/22 tablet,extended release 24 hr (Toprol XL) primidone 250 mg tablet 250 mg PO TID EPILEPSY 05/23/17 08/03/22 levothyroxine 75 mcg tablet 75 mcg PO DAILY thyroid 07/25/22 08/03/22 Allergies Allergy/AdvReac Type Severity Reaction Status Date / Time No Known Allergies Allergy Verified 08/01/22 10:48 PFSH PFSH Disclaimer: The information contained in this section may have been updated after the patient was seen, as this information can be updated by other users. Medical History Hypertension Hypothyroid Pain of left calf Periorbital cellulitis Seizure disorder Subconjunctival hemorrhage Upper respiratory infection Surgical History History of eye surgery History of laparoscopic cholecystectomy History of umbilical hernia repair Family History Other Family history of diabetes mellitus type II Family history of hypothyroidism Social History Smoking Status: Unknown if ever smoked alcohol intake: current substance use type: denies use current occupational status: retired Travel in the last 8 weeks: None household members: none housing: house lives independently: Yes marital status: education level: college special shayy needs: No agree to transfusion: No do you feel safe at home: Yes victim of physical abuse: No victim of emotional abuse: No victim of sexual abuse: No would you like helpful sources: No ROS Obtained: Yes All systems reviewed & no additional complaints except as documented Gastrointestinal
[2022-08-03 02:49] LABS: Microscopic, Urine URINE MICROSCOPIC (MICROSCOPIC)
--- NOTE | 2022-08-03 02:50 | PC.NURSE ---
CONTRAST COMPLETED AT TH IS TIME.
[2022-08-03 02:52] LABS: Appearance,Urine CLEAR (Clear); Bilirubin,Urine Negative (Negative); Blood, Urine Negative (Negative); Color,Urine YELLOW (Yellow); Glucose,Urine (UA) Negative (Negative); Ketones,Urine Negative (Negative); Leukocyte Esterase,Urine 1+ (Negative); Nitrate,Urine Negative (Negative); PH,Urine 5.5 (5.0-8.5); Protein,Urine Negative (Negative); Specific Gravity, Urine >= 1.030 (1.005-1.030); Urobilinogen,Urine 0.2 EU/dl (0.2)
[2022-08-03 02:53] LABS: Basophils # 0.1 K/mm3 (0-0.2); Basophils % 0.9 % (0.1-2.0); Eosinophils # 0.2 K/mm3 (0.0-0.4); Eosinophils % 2.7 % (0.1-12.0); Hematocrit 46.5 % (37.0-47.0); Hemoglobin 15.6 g/dL (12.2-16.2); Lymphocytes # 0.9 K/mm3 (0.7-4.5); Mean Corpuscular HGB Conc 33.5 g/dL (31.8-35.4); Mean Corpuscular Hemoglobin 29.5 pg (27.0-31.2); Mean Corpuscular Volume 88.1 fl (81-99); Mean Platelet Volume 8.7 fl (7.4-10.4); Monocytes # 0.3 K/mm3 (0.1-1.0); Monocytes % 3.9 % (1.7-9.3); Neutrophils # 6.9 K/mm3 (1.8-7.8); Neutrophils % 81.5 % (37.0-80.0); Platelet Count 286 K/mm3 (142-424); Red Blood Count 5.28 M/mm3 (4.20-5.40); Red Cell Distribution Width 13.6 % (11.5-17.5); White Blood Count 8.5 K/mm3 (4.8-10.8)
[2022-08-03 02:56] LABS: Bacteria,Urine 1+ /lpf; Squamous Epithelial Cell,Urine Occasional #/hpf (0-5)
[2022-08-03 02:57] LABS: Chloride 104 mmol/L (98-107); Sodium 138 mmol/L (136-145)
[2022-08-03 03:00] LABS: Alanine Aminotransferase 31 U/L (12-78); Albumin Level 4.3 g/dl (3.5-5.0); Albumin/Globulin Ratio 1.3 (1.1-1.8); Alkaline Phosphatase 113 U/L (38-126); Aspartate Amino Transferase 28 U/L (14-36); Bilirubin,Total 0.4 mg/dl (0.2-1.3); Blood Urea Nitrogen 16 mg/dl (7-17); Calcium 9.2 mg/dl (8.4-10.2); Carbon Dioxide 26 mmol/L (22.0-30.0); Creatinine Clearance Estimated 87 mL/min (50-200); Estimated Glomerular Filt Rate 71 ml/min (>60); GFR (African American) 85 ML/MIN (>60); Globulin 3.3 g/dL (1.3-3.2); Glucose 140 mg/dl (74-100); Lipase 48 U/L (23-300); Total Protein,Serum 7.6 g/dl (6.3-8.2)
--- NOTE | 2022-08-03 03:34 | PC.NURSE ---
Pt back in room from RAD
[2022-08-03 04:00] VITALS: BP 139/75; PULSE 81; O2SAT 91
--- NOTE | 2022-08-03 04:22 | PC.NURSE ---
Pt sitting up in wheelchair. No needs voiced. Call light within reach.
[2022-08-03 05:02] VITALS: BP 137/73; PULSE 78; RESP 14; TEMP 36.5; O2SAT 96
== END 2022-08-03 05:23 | disposition home or self-care (01) ==
PROVIDERS: Emergency Provider Emergency Medicine; PCP Internal Medicine
DX: R10.9 Unspecified abdominal pain (principal); L76.34 Postprocedural seroma of skin and subcutaneous tissue following other procedure
CPT/HCPCS: 74177; 80053; 81001; 83605; 83690; 85025; 87086; 87088; 87186; 96361; 96374; 96375; 99285; J2405; Q9967

== ENCOUNTER 2023-06-04 08:04 | Day surgery (SDC) | payer MEDICARE, SELFPAY ==
[2023-06-04] VITALS (7 sets, daily range): BP systolic 135–179; BP diastolic 72–81; PULSE 64–71; RESP 16–18; TEMP 36.1–36.6; O2SAT 92–97; BMI 44.6
[2023-06-04] MEDS: PHENYLEPHRINE 2.5% OPHTH SOLN 2ML 0.0500000000000000028 ML OP ×3 (08:37→08:46)
[2023-06-04] MEDS: TETRACAINE 0.5% OPTH SOL 15ML OP ×3 (08:37→08:46)
[2023-06-04] MEDS: CYCLOPENTOLATE 2% OPHTH SOLN 2ML BOTTLE OP ×3 (08:37→08:46)
[2023-06-04] MEDS: MIDAZOLAM 2MG/2ML VIAL 1 MG IV (09:25)
[2023-06-04] MEDS: TRI-MOXI 15MG/1MG/ML 1ML OPHTH VIAL 1 ML OP (09:32)
[2023-06-04] MEDS: LIDOCAINE 1% PF 2ML AMPULE 2 ML IJ (09:32)
[2023-06-04] MEDS: TIMOLOL 0.5% OPTH SOLN 5ML OP (09:32)
== END 2023-06-04 09:55 | disposition home or self-care (01) ==
PROVIDERS: PCP Internal Medicine; Visit Provider Ophthalmology
PROC: (CPT 66984; principal; 2023-06-04 10:00)
DX: H25.811 Combined forms of age-related cataract, right eye (principal)
CPT/HCPCS: 66984; V2632

== ENCOUNTER 2023-06-24 10:28 | Emergency (ER) | payer MEDICARE, SELFPAY ==
[2023-06-24 10:30] VITALS: BP 140/81; PULSE 73; RESP 18; TEMP 36.4; O2SAT 97; BMI 44.6
--- NOTE | 2023-06-24 10:52 | XR_ITS ---
FINAL REPORT CLINICAL HISTORY: L rib pain COMPARISON: None FINDINGS: Two views of the chest were obtained. The heart size and pulmonary vascularity are within normal limits. The mediastinum is normal. No acute pulmonary abnormality is identified. There is no pneumothorax. The bony thorax is intact. IMPRESSION: No active cardiopulmonary disease. Reviewed, Interpreted and Dictated by William West III, MD Transcribed by Pamela Allen Authenticated and [facility]
--- NOTE | 2023-06-24 10:54 | ED_ITS ---
Discharge Plan Disposition Patient Disposition: Home, Self-Care Condition: Good Prescriptions Prescriptions: No Action levothyroxine 75 mcg tablet 75 mcg PO DAILY primidone 250 MG tablet 250 mg PO TID Patient Comments: metoprolol succinate [Toprol XL] 50 MG tablet 50 mg PO DAILY Referrals Follow up/Referrals: Casey Jorge MD [Primary Care Provider] - See instructions Activity Restrictions/Add. Instructions Additional Instructions/Restrictions: You have been evaluated in the ED for your complaints. You may follow-up with your PCP in the next 3 to 5 days. Please return to ED for any new or worsening symptoms. As discussed, please take Tylenol and ibuprofen to assist with your symptoms. Clinical Impressions Clinical Impression: Rib pain on left side Discharge ED Provider: Job Gonzalez Adult HPI General Chief complaint: PAIN Stated complaint: ao left rib pain Time Seen by Provider: 06/24/23 10:45 Mode of Arrival: Ambulatory Source of Information: Patient Limitations: No Limitations Description of Symptoms (Recalled from ER Triage Doc. by RN): Patient reports left rib pain that started Saturday when she was cleaning under couch and was on the floor and rolled onto something hard that went into rib and has had pain that worsens with activity in that area. History of Present Illness HPI narrative: 73-year-old female with past medical history significant for hypertension, hypothyroidism, seizure disorder presents today for evaluation concerning left- sided rib pain that began on Saturday while she was cleaning under her couch. Patient states that she was reaching and noted that a metal object used for selling hit the left side of her rib cage. States that her pain is worse with certain movements however relieved with sitting still. Denies having any fevers, chills, abdominal pain, shortness of breath, edema or any other associated symptoms at this time. Has not taken any pain medications. No further complaints. Related Data Home Medications Medication Instructions Recorded Confirmed metoprolol succinate 50 mg 50 mg PO DAILY Hypertension 05/23/17 06/21/23 tablet,extended release 24 hr (Toprol XL) primidone 250 mg tablet 250 mg PO TID EPILEPSY 05/23/17 06/21/23 levothyroxine 75 mcg tablet 75 mcg PO DAILY thyroid 07/25/22 06/21/23 Allergies Allergy/AdvReac Type Severity Reaction Status Date / Time No Known Allergies Allergy Verified 06/21/23 11:[address] [place] [address] Disclaimer: The information contained in this section may have been updated after the patient was seen, as this information can be updated by other users. Medical History Hypertension Hypothyroid Pain of left calf Periorbital cellulitis Seizure disorder Subconjunctival hemorrhage Upper respiratory infection Surgical History History of eye surgery History of laparoscopic cholecystectomy History of umbilical hernia repair Family History Other Family history of diabetes mellitus type II Family history of hypothyroidism Social History Smoking Status: Never smoker alcohol intake: current substance use type: denies use current occupational status: retired Travel in the last 8 weeks: None household members: none housing: house lives independently: Yes marital status: education level: college caffeine: No special shayy needs: No agree to transfusion: No do you feel safe at home: Yes victim of physical abuse: No victim of emotional abuse: No victim of sexual abuse: No would you like helpful sources: No ROS Obtained: Yes All systems reviewed & no additional complaints except as documented Physical Exam General General appearance: alert and in no apparent distress Head Head exam: atraumatic and normocephalic Eye Eye exam: Present normal appearance, PERRL and EOMI ENT ENT exam: Present normal oropharynx and mucous membranes moist Neck Neck exam: Present full ROM; Absent meningismus Chest Chest inspection: Present tenderness (Tenderness to palpation over the lateral aspect of the left ribs.) Respiratory Respiratory exam: Absent respiratory distress, wheezes, stridor or accessory muscle use Cardiovascular Cardiovascular exam: Present normal rhythm Abdominal Exam Abdominal exam: Present soft; Absent distention, tenderness, guarding, rebound or rigidity Neurological Exam Neurological exam: Present alert, oriented X3 and CN II-XII intact; Absent motor sensory deficit Psychiatric Psychiatric exam: Present normal affect and normal mood Skin Skin exam: Present warm and dry Medical Decision Making Medical Records Medical records reviewed: Yes I reviewed the patient's medical records. Marlon Inquiry Pt receiving controlled substance: No Marlon was queried for this patient: No Vital Signs: 06/24/23 10:30 06/24/23 11:31 06/24/23 11:59 Temperature 97.6 F Temperature Source Oral Pulse Rate 74 65 Pulse Rate [Right] 73 Respiratory Rate 18 20 Blood Pressure 136/85 136/85 Blood Pressure [Right Arm] 140/81 Blood Pressure Mean 124 112 Blood Pressure Mean [Right Arm] 100 Blood Pressure Source [Right Arm] Automatic Cuff 02 Sat by Pulse Oximetry 97 95 95 Oxygen Delivery Method Room Air Lab Data Lab Results 06/24/23 11:00: WBC 4.5 L, RBC 5.21, Hgb 16.0, Hct 47.7 H, MCV 91.6, MCH 30.8, MCHC 33.6, RDW 14.3, Plt Count 209, MPV 8.3, Neut % (Auto) 57.1, Lymph % (Auto) 32.6, Charlton % (Auto) 4.6, Eos % (Auto) 4.4, Baso % (Auto) 1.3, Neut # (Auto) 2.6, Lymph # (Auto) 1.5, Charlton # (Auto) 0.2, Eos # (Auto) 0.2, Baso # (Auto) 0.1, Sodium 143, Potassium 4.1, Chloride 106, Carbon Dioxide 28, Anion Gap 13.1, BUN 10, Creatinine 0.70, Estimated Creat Clear 43, Estimated GFR 82, Est GFR ( Amer) 99, Glucose 99, Calcium 9.7, Total Bilirubin 0.5, AST 34, ALT 37, Alkaline Phosphatase 129 H, Troponin I < 0.01, Total Protein 8.2, Albumin 4.6, Globulin 3.6 H, Albumin/Globulin Ratio 1.3 06/24/23 12:55: Troponin I < 0.01 06/24/23 11:00 06/24/23 11:00 Orders (Tests/Meds): ED MEDICATIONS Discontinued Medications Generic Name Dose Route Start Last Admin Trade Name Freq PRN Reason Stop Dose Admin Ibuprofen 800 mg 06/24/23 10:53 06/24/23 11:00 Ibuprofen 800 Mg Tablet PO 06/24/23 10:54 800 mg ONCE ONE Administration ORDERS Category Date Time Status CXR 2 view (NOT portable) [XR chest 2V] Stat Exams 06/24/23 10:52 Completed Complete Blood Count Auto Diff Stat Lab 06/24/23 11:00 Completed Comprehensive Metabolic Panel Stat Lab 06/24/23 11:00 Completed Troponin I Q3H Lab 06/24/23 12:55 Completed Troponin I Q3H Lab 06/24/23 17:00 Ordered Troponin I Stat Lab 06/24/23 11:00 Completed ECG initial Besson Routine Y 06/24/23 11:03 Completed ECG Data Tracing #1: I reviewed this ECG and interpreted as documented below: EKG was personally interpreted by me. Normal sinus rhythm with a rate of 70 bpm. There are no ST elevations noted to suggest ischemia. Low voltage QRS. HEART Score History (anamnesis): Slightly suspicious ECG: Normal Age: >65 years Risk factors: 1-2 risk factors Troponin: </= normal limit HEART Score: 3 Medical Decision Narrative: 73-year-old female with past medical history significant for hypertension, hypothyroidism, seizure disorder presents today for evaluation concerning left- sided rib pain that began on Saturday while she was cleaning under her couch. Patient states that she was reaching and noted that a metal object used for selling hit the left side of her rib cage. States that her pain is worse with certain movements however relieved with sitting still. On assessment, the patient was hemodynamically stable and in no acute distress. Afebrile. Physical exam was remarkable for tenderness to palpation over the left ribs laterally. No external signs of trauma. Chest was clear to auscultation bilaterally. Abdomen soft nondistended nontender to palpation. Other physical exam findings unremarkable. Differential diagnoses include not limited to musculoskeletal pain, rib fracture, muscle strain, ACS, pleural effusion, pneumonia, among others. Patient was given 800 mg of ibuprofen while in the ED. x-ray imaging was ordered as well as cardiac workup including CBC, CMP, troponins and EKG. X-ray did not show any acute cardiopulmonary disease processes. I did not appreciate any rib fractures on my interpretation. EKG did not show any signs concerning for ischemia. First and second troponins were unremarkable. WBC of 4.5. Alkaline phosphatase 129. Other labs nonactionable. On reassessment she remains medically stable and in no acute distress. Symptoms improved. I discussed ED workup and results and current plan to discharge home with supportive care measures. Her symptoms are likely due to musculoskeletal pain today given her history and results that rule out a cardiac component. Provided with return ED precautions and instructions concerning PCP follow-up. She verbalized understanding and agreement. Subsequently discharged home in medically stable and in no acute distress. Critical Care Critical Care Time Critical Care Time: No
[2023-06-24] MEDS: IBUPROFEN 800 MG TABLET PO (11:00)
--- NOTE | 2023-06-24 11:03 | ECG_ITS ---
APPROVED REPORT Exam: Resting ECG HR:70 bpm ECG Measurements Heart Rate 70 AXES MO 166 P 56 QRSd 94 QRS 0 QT 392 T 17 QTc 412 Conclusion SINUS RHYTHM LOW QRS VOLTAGE IN PRECORDIAL LEADS [QRS DEFLECTION < 1.0 mV IN CHEST LEADS] POSSIBLE ANTERIOR MYOCARDIAL INFARCTION , PROBABLY OLD [30 ms Q WAVE IN V3/V4, OR R < 0.2 mV IN V4] BORDERLINE ECG UNCONFIRMED REPORT Electronically signed by : Eliezer Carvajal MD 06/24/2023 17:57:30
[2023-06-24 11:08] LABS: Basophils # 0.1 K/mm3 (0-0.2); Basophils % 1.3 % (0.1-2.0); Eosinophils # 0.2 K/mm3 (0.0-0.4); Eosinophils % 4.4 % (0.1-12.0); Hematocrit 47.7 % (37.0-47.0); Lymphocytes # 1.5 K/mm3 (0.7-4.5); Lymphocytes % 32.6 % (10-50); Mean Corpuscular HGB Conc 33.6 g/dL (31.8-35.4); Mean Corpuscular Hemoglobin 30.8 pg (27.0-31.2); Mean Corpuscular Volume 91.6 fl (81-99); Mean Platelet Volume 8.3 fl (7.4-10.4); Monocytes # 0.2 K/mm3 (0.1-1.0); Monocytes % 4.6 % (1.7-9.3); Neutrophils # 2.6 K/mm3 (1.8-7.8); Neutrophils % 57.1 % (37.0-80.0); Platelet Count 209 K/mm3 (142-424); Red Blood Count 5.21 M/mm3 (4.20-5.40); Red Cell Distribution Width 14.3 % (11.5-17.5); White Blood Count 4.5 K/mm3 (4.8-10.8)
[2023-06-24 11:18] LABS: Alanine Aminotransferase 37 U/L (12-78); Albumin Level 4.6 g/dl (3.5-5.0); Albumin/Globulin Ratio 1.3 (1.1-1.8); Alkaline Phosphatase 129 U/L (38-126); Anion Gap 13.1 mEq/L (5-15); Aspartate Amino Transferase 34 U/L (14-36); Bilirubin,Total 0.5 mg/dl (0.2-1.3); Blood Urea Nitrogen 10 mg/dl (7-17); Calcium 9.7 mg/dl (8.4-10.2); Carbon Dioxide 28 mmol/L (22.0-30.0); Chloride 106 mmol/L (98-107); Creatinine Clearance Estimated 43 mL/min (50-200); Estimated Glomerular Filt Rate 82 ml/min (>60); GFR (African American) 99 ML/MIN (>60); Globulin 3.6 g/dL (1.3-3.2); Glucose 99 mg/dl (74-100); Potassium 4.1 mmoL/L (3.5-5.1); Sodium 143 mmol/L (136-145); Total Protein,Serum 8.2 g/dl (6.3-8.2)
[2023-06-24 11:31] VITALS: BP 136/85; PULSE 74; O2SAT 95
[2023-06-24 11:45] LABS: Troponin I < 0.01 ng/ml (0.00-0.034)
[2023-06-24 11:59] VITALS: BP 136/85; PULSE 65; RESP 20; O2SAT 95
--- NOTE | 2023-06-24 13:00 | PC.NURSE ---
pt straight stuck for second troponin lab, OK per MD to perform 2 hour troponin instead of 3 hr.
[2023-06-24 13:37] LABS: Troponin I < 0.01 ng/ml (0.00-0.034)
[2023-06-24 14:13] VITALS: BP 136/85; PULSE 65; RESP 15; TEMP 36.7
== END 2023-06-24 14:14 | disposition home or self-care (01) ==
PROVIDERS: Emergency Provider Emergency Medicine; PCP Internal Medicine
DX: R07.81 Pleurodynia (principal); I10 Essential (primary) hypertension; E03.9 Hypothyroidism, unspecified; G40.909 Epilepsy, unspecified, not intractable, without status epilepticus
CPT/HCPCS: 71046; 80053; 84484; 85025; 93005; 99284

== ENCOUNTER 2023-06-25 07:39 | Day surgery (SDC) | payer MEDICARE, SELFPAY ==
[2023-06-13 12:29] VITALS: BMI 44.6
[2023-06-25] MEDS: TETRACAINE 0.5% OPTH SOL 15ML OP ×3 (08:29→08:43)
[2023-06-25] MEDS: CYCLOPENTOLATE 2% OPHTH SOLN 2ML BOTTLE OP ×3 (08:29→08:43)
[2023-06-25] MEDS: PHENYLEPHRINE 2.5% OPHTH SOLN 2ML 0.0500000000000000028 ML OP ×3 (08:30→08:43)
[2023-06-25 08:32] VITALS: BP 138/82; PULSE 76; RESP 18; TEMP 36.3; O2SAT 96
[2023-06-25] MEDS: SODIUM CHLORIDE 0.9% 10ML FLUSH SYRINGE 10 ML IV ×2 (08:40→09:29)
[2023-06-25 09:25] VITALS: BP 148/74; PULSE 77; RESP 16; O2SAT 96
[2023-06-25] MEDS: LIDOCAINE 1% PF 2ML AMPULE 2 ML IJ (09:29)
[2023-06-25] MEDS: MIDAZOLAM 2MG/2ML VIAL 1 MG IV (09:29)
[2023-06-25 09:30] VITALS: BP 140/77; PULSE 73; RESP 17; O2SAT 96
[2023-06-25] MEDS: TIMOLOL 0.5% OPTH SOLN 5ML OP (09:30)
[2023-06-25] MEDS: TRI-MOXI 15MG/1MG/ML 1ML OPHTH VIAL 1 ML OP (09:30)
[2023-06-25 09:35] VITALS: BP 139/72; PULSE 70; RESP 18; O2SAT 97
[2023-06-25 09:41] VITALS: BP 139/88; PULSE 81; RESP 16; TEMP 36.3; O2SAT 95
== END 2023-06-25 09:58 | disposition home or self-care (01) ==
PROVIDERS: PCP Internal Medicine; Visit Provider Ophthalmology
PROC: (CPT 66984; principal; 2023-06-25 09:30)
DX: H25.812 Combined forms of age-related cataract, left eye (principal)
CPT/HCPCS: 66984; V2632

== ENCOUNTER 2023-11-07 10:20 | Outpatient (CLI) | payer MEDICARE, SELFPAY ==
[2023-11-07 17:30] LABS: Microscopic, Urine URINE MICROSCOPIC (MICROSCOPIC)
[2023-11-07 17:50] LABS: Eosinophils # 0.2 K/mm3 (0.0-0.4); Eosinophils % 3.6 % (0.1-12.0); Lymphocytes # 1.3 K/mm3 (0.7-4.5); Lymphocytes % 28.5 % (10-50); Mean Corpuscular HGB Conc 33.4 g/dL (31.8-35.4); Mean Corpuscular Hemoglobin 30.4 pg (27.0-31.2); Mean Corpuscular Volume 90.9 fl (81-99); Mean Platelet Volume 8.2 fl (7.4-10.4); Monocytes # 0.2 K/mm3 (0.1-1.0); Monocytes % 4.5 % (1.7-9.3); Neutrophils # 2.9 K/mm3 (1.8-7.8); Neutrophils % 62.4 % (37.0-80.0); Platelet Count 209 K/mm3 (142-424); Red Blood Count 4.94 M/mm3 (4.20-5.40); White Blood Count 4.6 K/mm3 (4.8-10.8)
[2023-11-07 17:51] LABS: Appearance,Urine CLEAR (Clear); Bilirubin,Urine Negative (Negative); Blood, Urine Negative (Negative); Color,Urine YELLOW (Yellow); Glucose,Urine (UA) Negative (Negative); Ketones,Urine Negative (Negative); Leukocyte Esterase,Urine Negative (Negative); Nitrate,Urine Negative (Negative); PH,Urine 5.5 (5.0-8.5); Protein,Urine Negative (Negative); Urobilinogen,Urine 0.2 EU/dl (0.2)
[2023-11-07 18:13] LABS: Alanine Aminotransferase 26 U/L (12-78); Albumin Level 4.5 g/dl (3.5-5.0); Albumin/Globulin Ratio 1.5 (1.1-1.8); Alkaline Phosphatase 107 U/L (38-126); Aspartate Amino Transferase 27 U/L (14-36); Bilirubin,Total 0.5 mg/dl (0.2-1.3); Blood Urea Nitrogen 12 mg/dl (7-17); Calcium 9.6 mg/dl (8.4-10.2); Carbon Dioxide 26 mmol/L (22.0-30.0); Chloride 103 mmol/L (98-107); Chol/HDL Ratio 4.5 (1-3.5); Cholesterol 260 mg/dl (140-200); Estimated Glomerular Filt Rate 82 ml/min (>60); GFR (African American) 99 ML/MIN (>60); Globulin 3.1 g/dL (1.3-3.2); Glucose 90 mg/dl (74-100); HDL Cholesterol 58 mg/dl (40-60); Sodium 140 mmol/L (136-145); Total Protein,Serum 7.6 g/dl (6.3-8.2); Triglycerides 168 mg/dl (30-150); VLDL Cholesterol 34 mg/dL (0-40)
[2023-11-07 18:24] LABS: Direct LDL Cholesterol 149.49 mg/dL (100-129)
[2023-11-07 18:33] LABS: 25-OH Vitamin D, Total 18.7 ng/mL (30-100)
[2023-11-07 18:42] LABS: Bacteria,Urine Trace /lpf; WBC,Urine Occasional #/hpf (0-3)
[2023-11-07 18:46] LABS: Thyroid Stimulating Hormone 1.45 uIU/mL (0.465-4.68)
[2023-11-07 19:04] LABS: Vitamin B12 650 pg/mL (239-931)
[2023-11-07 19:48] LABS: Hemoglobin A1C 5.3 % (4.0-6.0)
[2023-11-07 19:51] LABS: Iron 123 ug/dL (37-170)
[2023-11-07 20:04] LABS: Total Iron Binding Capacity 294 ug/dL (265-497)
[2023-11-07 20:28] LABS: Ferritin 84.4 ng/ml (11.1-264)
== END 2023-11-07 23:59 | disposition home or self-care (01) ==
LOC: LAB.DROPOF 11-08 10:20
PROVIDERS: PCP Nurse Practitioner Family; Visit Provider Nurse Practitioner Family
DX: D64.9 Anemia, unspecified (principal); R53.83 Other fatigue; I10 Essential (primary) hypertension; E78.5 Hyperlipidemia, unspecified; G25.81 Restless legs syndrome; R60.0 Localized edema; G40.909 Epilepsy, unspecified, not intractable, without status epilepticus; E66.9 Obesity, unspecified; Z68.41 Body mass index [BMI] 40.0-44.9, adult; Z13.220 Encounter for screening for lipoid disorders; Z13.1 Encounter for screening for diabetes mellitus
CPT/HCPCS: 80050; 80053; 80061; 81001; 82306; 82607; 82728; 83036; 83540; 83550; 83735; 84156; 84439; 84443; 85025; 87086

== ENCOUNTER 2025-01-08 15:00 | Outpatient (RCR) | payer MEDICARE, SELFPAY | END 2025-01-08 23:59 | disposition home or self-care (01) | LOC: OT 15:00 | PROVIDERS: PCP Internal Medicine; Visit Provider Internal Medicine | DX: G56.20 Lesion of ulnar nerve, unspecified upper limb (principal) | CPT/HCPCS: 97014; 97110; 97140; 97165; G0283 ==

== ENCOUNTER 2025-01-29 15:00 | Outpatient (RCR) | payer MEDICARE, SELFPAY ==
--- NOTE | 2025-03-17 11:26 | [facility].RHREAS ---
Rehab Reassessment Rehab OP Re-assessment Start: 01/12/25 15:56 Freq: Status: Discharge Protocol: Document 01/12/25 15:59 SYLVAINSHANEKA (Rec: 01/12/25 16:11 SYLVAINSHANEKA [id number]) E-signed By Tara Saxena, OT Rehab Re-assessment Subjective Subjective My hand is still numb. Objective Objective Notes 74-year-old female was referred to skilled outpatient OT services for left upper extremity (L UE) cubital tunnel syndrome. The patient reports persistent numbness and tingling in the left digits 4?5 for the past 2?3 years, with no relief. No imaging studies have been obtained for the L UE. AROM of the L UE elbow, wrist, and digits is within functional limits (WFL). Patient has participated in skilled outpatient OT services with interventions including therapeutic stretching, strengthening, and use of various modalities for pain management. She has demonstrated improvement in bilateral upper extremity financial sales advisor strength, though numbness and tingling persist in the R UE digits 4?5. Assessment Progress Assessment Progressing as Expected Assessment Notes Initial Evaluation: 12/16/24 0/10 pain at best 0/10 pain at worst R hand financial sales advisor: 55# L hand financial sales advisor: 45# Re-Evaluation: 01/12/25 0/10 pain at best 0/10 pain at worst R hand financial sales advisor: 60# L hand financial sales advisor: 60# OT Patient Goals OT Short Term 1. Pt will demonstrate improved endurance by completing Patient Goals left wrist exercises for ~10 minutes prior to rest break in order to increase his tolerance for daily work activities. 2. Pt will demonstrate independence with HEP of AAROM exercises to increase overall functional use of Right wrist in daily activities ~75% of the time. 3. Pt will improve B hand financial sales advisor strength to 70 lbs in order to be able to open jars/containers independently ~50% of the time. OT Security Flex Utility Officer Patient 1. Pt will demonstrate improved endurance by completing Goals left wrist exercises for ~15 minutes prior to rest break in order to increase his tolerance for daily work activities. 2. Pt will demonstrate independence with HEP of AAROM exercises to increase overall functional use of Right wrist in daily activities ~75% of the time. 3. Pt will improve B UE hand financial sales advisor strength to 70 lbs in order to be able to open jars/containers independently ~50% of the time. Plan Plan Continue skilled OT services with emphasis on therapeutic stretching, strengthening, and modalities for pain reduction Monitor ULE symptoms (digits 4?5) Progress therapeutic activities as tolerated Frequency of Therapy 2x/wk Duration of Therapy 4 weeks Therapeutic Exercise Yes Including Home Exercise Program Manual Therapy Yes Techniques Therapeutic Yes Activities to Return to Previous Functional/Work Level Electrical Yes Stimulation Ultrasound/ Yes Phonophoresis Iontophoresis Yes Time and Billing Re-Eval Time 10 Re-Eval Billing 1 Units Charge for OT Yes reassessment? PHYSICIAN CERTIFICATION: I certify the specified therapy services for Milton Antony are required, authorized, and reviewed every 30 days.
--- NOTE | 2025-03-18 14:14 | [facility].RHREAS ---
Rehab Reassessment Rehab OP Re-assessment Start: 01/12/25 15:56 Freq: Status: Discharge Protocol: Document 01/12/25 15:59 SYLVAINSHANEKA (Rec: 01/12/25 16:11 SYLVAINSHANEKA [id number]) E-signed By Tara Saxena, OT Rehab Re-assessment Subjective Subjective My hand is still numb. Objective Objective Notes 74-year-old female was referred to skilled outpatient OT services for left upper extremity (L UE) cubital tunnel syndrome. The patient reports persistent numbness and tingling in the left digits 4?5 for the past 2?3 years, with no relief. No imaging studies have been obtained for the L UE. AROM of the L UE elbow, wrist, and digits is within functional limits (WFL). Patient has participated in skilled outpatient OT services with interventions including therapeutic stretching, strengthening, and use of various modalities for pain management. She has demonstrated improvement in bilateral upper extremity healthcare management strength, though numbness and tingling persist in the R UE digits 4?5. Assessment Progress Assessment Progressing as Expected Assessment Notes Initial Evaluation: 12/16/24 0/10 pain at best 0/10 pain at worst R hand healthcare management: 55# L hand healthcare management: 45# Re-Evaluation: 01/12/25 0/10 pain at best 0/10 pain at worst R hand healthcare management: 60# L hand healthcare management: 60# OT Patient Goals OT Short Term 1. Pt will demonstrate improved endurance by completing Patient Goals left wrist exercises for ~10 minutes prior to rest break in order to increase his tolerance for daily work activities. 2. Pt will demonstrate independence with HEP of AAROM exercises to increase overall functional use of Right wrist in daily activities ~75% of the time. 3. Pt will improve B hand healthcare management strength to 70 lbs in order to be able to open jars/containers independently ~50% of the time. OT Customer Logistics Manager Patient 1. Pt will demonstrate improved endurance by completing Goals left wrist exercises for ~15 minutes prior to rest break in order to increase his tolerance for daily work activities. 2. Pt will demonstrate independence with HEP of AAROM exercises to increase overall functional use of Right wrist in daily activities ~75% of the time. 3. Pt will improve B UE hand healthcare management strength to 70 lbs in order to be able to open jars/containers independently ~50% of the time. Plan Plan Continue skilled OT services with emphasis on therapeutic stretching, strengthening, and modalities for pain reduction Monitor ULE symptoms (digits 4?5) Progress therapeutic activities as tolerated Frequency of Therapy 2x/wk Duration of Therapy 4 weeks Therapeutic Exercise Yes Including Home Exercise Program Manual Therapy Yes Techniques Therapeutic Yes Activities to Return to Previous Functional/Work Level Electrical Yes Stimulation Ultrasound/ Yes Phonophoresis Iontophoresis Yes Time and Billing Re-Eval Time 10 Re-Eval Billing 1 Units Charge for OT Yes reassessment? PHYSICIAN CERTIFICATION: I certify the specified therapy services for Milton Antony are required, authorized, and reviewed every 30 days.
== END 2025-01-29 23:59 | disposition home or self-care (01) ==
LOC: OT 15:00
PROVIDERS: PCP Internal Medicine; Visit Provider Internal Medicine
DX: G56.20 Lesion of ulnar nerve, unspecified upper limb (principal)
CPT/HCPCS: 97014; 97110; 97140; 97168; G0283